=== PATIENT | male | born 1970 | race Caucasian/White ===

== ENCOUNTER 2017-07-11 22:02 | Emergency (ER) | payer OTHER ==
[2017-07-12 02:18] VITALS: BP 137/70
--- NOTE | 2017-07-12 07:59 | RAD ---
INDICATION: Left thigh pain status post slip and fall injury. COMPARISON: None. TECHNIQUE: Noncontrast CT examination of the left distal femur and knee. Axial images were acquired and sagittal and coronal reformats were created and independently analyzed. FINDINGS: The visualized bones are well-corticated and appropriately aligned. There is no evidence of an acute fracture or dislocation. Mild degenerative changes include narrowing of the medial compartment, sclerotic change of the medial tibial plateau and narrowing of the patellofemoral joint. There is superior pole osteophyte formation at the patella. There is trace fluid in the knee joint mostly along the lateral superior post patellar fat pad. Best depicted on the axial plane images (image 68) there is relative hyperdensity along the lateral margin of the quadriceps tendon with a thin rim of hyperdense fluid tracking into the musculature of the vastus lateralis. There is no large drainable muscular hematoma. Within the limitations of a noncontrast CT examination the vasculature and other soft tissues appear normal. IMPRESSION: Hyperdense fluid along the lateral margin of the quadriceps tendon could be seen in the setting of tendinous injury and/or partial tear. There is no drainable hematoma or other fluid collection. As clinically warranted more complete characterization could be made with nonemergent MRI.
--- NOTE | 2017-07-12 12:55 | ED ---
Lower Extremity - HPI Summary HPI Summary: Patient presents with intense upper thigh pain after a twisting motion early this afternoon. HE has not been able to ambulate well since the incident. He feels he flexed the knee when falling and pulled his quadricep. He is unable to fully flex at the knee. Notes to intense pain while bearing weight or trying to flex or extend at the knee. Denies pain at rest. Denies color or temperature changes to the area, but feels some slight swelling. Denies knee pain. Denies hip pain. He is otherwise healthy and takes no medications. Taken aleve with minimal relief. - History of Current Complaint Chief Complaint: EDExtremityLower Stated Complaint: FALL/LT LEG INJURY Time Seen by Provider: 07/11/17 23:02 Hx Obtained From: Patient Mechanism Of Injury: Twisted Onset of Pain: Immediate Onset/Duration: Hours Severity Initially: Moderate Severity Currently: Moderate Pain Intensity: 7 Pain Scale Used: 0-10 Numeric Timing: Constant Location: Is Discrete @ - left quadripcep Associated Signs And Symptoms: Positive: Swelling Aggravating Factor(s): Standing, Ambulation, Movement, Weight Bearing Alleviating Factor(s): Rest Able to Bear Weight: No - Risk Factors Gout Risk Factors: Negative DVT Risk Factors: Estrogen Septic Arthritis Risk Factor: Negative - Allergies/Home Medications Allergies/Adverse Reactions: Allergies Allergy/AdvReac Type Severity Reaction Status Date / Time environmental Allergy Unknown Unknown Uncoded 07/24/13 13:02 Reaction Details PMH/Surg Hx/FS Hx/Imm Hx Previously Healthy: Yes Cardiovascular History: Reports: Hx Hypercholesterolemia Respiratory History: Reports: Hx Sleep Apnea - previous dx, no treatment Sensory History: Reports: Other Sensory Impairments - prn eye drops Opthamlomology History: Reports: Other Sensory Impairments - prn eye drops - Surgical History Surgery Procedure, Year, and Place: LEFT KNEE - Immunization History Hx Pertussis Vaccination: No Immunizations Up to Date: Unable to Obtain/Confirm Infectious Disease History: Denies: Traveled Outside the [place] in Last 30 Days - Social History Occupation: Employed Full-time Lives: With Family Alcohol Use: Rare Hx Substance Use: No Substance Use Type: Reports: None Hx Tobacco Use: No Smoking Status (MU): Never Smoked Tobacco Review of Systems Constitutional: Negative Eyes: Negative Cardiovascular: Negative Respiratory: Negative Genitourinary: Negative Positive: no symptoms reported Positive: Myalgia Skin: Negative Psychological: Normal All Other Systems Reviewed And Are Negative: Yes Physical Exam Triage Information Reviewed: Yes Vital Signs On Initial Exam: Initial Vitals Pulse Resp BP Pulse Ox 77 16 137/70 99 07/12/17 02:15 07/12/17 02:15 07/12/17 02:15 07/12/17 02:15 Vital Signs Reviewed: Yes Appearance: Positive: Well-Appearing, Well-Nourished Skin: Positive: Warm, Skin Color Reflects Adequate Perfusion Head/Face: Positive: Normal Head/Face Inspection Eyes: Positive: EOMI, RAJIV, Conjunctiva Clear Neck: Positive: Supple, No Lymphadenopathy Respiratory/Lung Sounds: Positive: Clear to Auscultation, Breath Sounds Present Cardiovascular: Positive: RRR, Pulses are Symmetrical in both Upper and Lower Extremities Musculoskeletal: Positive: Pain @ - left quad muscle Neurological: Positive: Sensory/Motor Intact, Alert, Oriented to Person Place, Time, Speech Normal Psychiatric: Positive: Normal - [place] Coma Scale Coma Scale Total: 15 Diagnostics - Vital Signs Vital Signs Pulse Resp BP Pulse Ox 07/12/17 02:15 77 16 137/70 99 - Laboratory Lab Statement: Any lab studies that have been ordered have been reviewed, and results considered in the medical decision making process. Lower Extremity Course/Dx - Course Course Of Treatment: He is feeling pressure and pain just 2 cm proximal to the quadriceps tendon insertion, tenderness along the anterior knee is present just above the patella and at the superior border for quadriceps significant for possible partial quadriceps tendon tear. Pain is worse with passive/active knee flexion and passive/active hip extension. CT obtained: IMPRESSION: Hyperdense fluid along the lateral margin of the quadriceps tendon could be. seen in the setting of tendinous injury and/or partial tear. There is no drainable. hematoma or other fluid collection. As clinically warranted more complete characterization. could be made with nonemergent MRI. Patient is given the option of awaiting CT results, as it has been over 1.5 hours. He would like to be discharged home and provider will call tomorrow with results. He is offered pain management and crutches for which he refuses both. Patient is OK with discharge. Upon calling the patient the next morning, he is informed of results and again is encouraged to follow up with ortho for a further evaluation and possible imaging. Left message for patient at 11am on 10/26/17. - Diagnoses Differential Diagnosis/HQI/PQRI: Positive: Sprain, Strain, Tendonitis Provider Diagnoses: Quadriceps muscle strain Discharge - Discharge Plan Condition: Stable Disposition: HOME Patient Education Materials: Muscle Strain (ED) Referrals: Kennedy SEARS,Paulie Mancia [Primary Care Provider] - Vidal Morin MD [Medical Doctor] - Additional Instructions: Aleve or ibuprofen x 5 days minimum Moist heat to the area This is likely a strain of the muscle I will call you tomorrow to give you any results from your CT scan today Please follow up with ortho if symptoms persist
== END 2017-07-12 02:10 | disposition home or self-care (01) ==
LOC: ED 22:02
DX: S76.112A Strain of left quadriceps muscle, fascia and tendon, initial encounter (principal); W19.XXXA Unspecified fall, initial encounter; Y93.9 Activity, unspecified; Y92.9 Unspecified place or not applicable
CPT/HCPCS: 99282

== ENCOUNTER 2018-03-21 21:04 | Emergency (ER) | payer OTHER ==
[2018-03-21 21:45] VITALS: BP 127/84
[2018-03-21] MEDS ORDERED: Cephalexin CAP* 500 MG PO ONE (22:33)
--- NOTE | 2018-03-21 22:50 | UC ---
Skin Complaint HPI - HPI Summary HPI Summary: 47 y/o male presents to the urgent care c/o a red rash over his RT sole s/p bee sting while mowing his back yard yesterday. Pt reports rash is spreading over the medial side of his Rt foot w/ mild swelling. Last year he had a similar episode and the red streak move up to his knee. Pain is mild 2/10 w/ itchiness. Pt denies fever SON, throat tightening, chest pain,abdominal pain, N/V/D. Pt is allergic to Benadryl PO s/p allergic testing. - History of Current Complaint Chief Complaint: UCSkin Time Seen by Provider: 03/21/18 22:25 Stated Complaint: INFLAMED BEE STING SKIN Hx Obtained From: Patient Onset/Duration: Sudden Onset, Lasting Days - 1 day, Still Present, Worse Since - today Skin Exposure Onset/Duration: Days Ago - 1 Timing: Constant Onset Severity: Mild Current Severity: Moderate Pain Intensity: 2 Pain Scale Used: 0-10 Numeric Location: Discrete - Rt sole bee sting and red rash radiating to the medial side of RT foot Character: Swelling, Pruritus, Redness Aggravating Factor(s): Touch Alleviating Factor(s): Nothing Associated Signs & Symptoms: Positive: Rash, Tenderness. Negative: Fever, Chills Related History: Possible Reaction to: Insect - Allergy/Home Medications Allergies/Adverse Reactions: Allergies Allergy/AdvReac Type Severity Reaction Status Date / Time environmental Allergy Unknown Unknown Uncoded 03/21/18 21:46 Reaction Details Home Medications: Home Medications Calcium Carb/Magnesium Hydrox [Rolaids Chewable Tablet] 2 tab PO Q2H PRN [History Confirmed 03/21/18] Review of Systems Constitutional: Negative Skin: Rash - RT plantar redness and swelling s/p bee sting Eyes: Negative ENT: Negative Respiratory: Negative Cardiovascular: Negative Gastrointestinal: Negative Genitourinary: Negative Motor: Negative Neurovascular: Negative Musculoskeletal: Negative Neurological: Negative Psychological: Negative Is Patient Immunocompromised?: No All Other Systems Reviewed And Are Negative: Yes PMH/Surg Hx/FS Hx/Imm Hx Previously Healthy: Yes Endocrine History: Dyslipidemia - diet control Other Respiratory History: seasonal allergies - Surgical History Surgical History: Yes Surgery Procedure, Year, and Place: LEFT KNEE SURGERY 2002 - Family History Known Family History: Positive: Cardiac Disease, Diabetes - Social History Occupation: Employed Full-time Lives: With Family Alcohol Use: Daily Alcohol Amount: 1 beer Substance Use Type: None Smoking Status (MU): Never Smoked Tobacco Physical Exam - Summary Physical Exam Summary: Vital Signs Reviewed: Yes General: well developed, well nourished male sitting in the examining table w/o any apparent distress. Eyes: Positive: Conjunctiva Clear - PERRLA, EOMI ENT: Positive: Normal ENT inspection, Hearing grossly normal, Pharynx normal, TMs normal Neck: Positive: Supple, Nontender, No Lymphadenopathy Respiratory: Positive: Chest nontender, Lungs clear, Normal breath sounds Cardiovascular: Positive: RRR, No Murmur, Pulses Normal Abdomen Description: Positive: Nontender, No Organomegaly, Soft. Negative: CVA Tenderness (R), CVA Tenderness (L) Bowel Sounds: Positive: Present Musculoskeletal: Positive: Strength Intact, ROM Intact, No Edema Neurological Exam: Normal Psychological Exam: Normal Skin: Positive: rashes - RT plantar mid foot w/ erythematous patch w/ indistinct borders, warm to touch, swelling and tender to palpation w/ a central induration from bee sting and streaking to the medial aspect of the RT foot. Triage Information Reviewed: Yes Vital Signs: Initial Vital Signs Temp 98.1 F 03/21/18 21:40 Pulse 81 03/21/18 21:40 Resp 16 03/21/18 21:40 BP 127/84 03/21/18 21:40 Pulse Ox 99 03/21/18 21:40 Course/Dx - Course Course Of Treatment: 47 y/o male presents to the urgent care c/o a red rash over his RT sole s/p bee sting while mowing his back yard yesterday. Pt reports rash is spreading over the medial side of his Rt foot w/ mild swelling. Last year he had a similar episode and the red streak move up to his knee. Pain is mild 2/10 w/ itchiness. Pt denies fever SON, throat tightening, chest pain, abdominal pain, N/V/D. Pt is allergic to Benadryl PO s/p allergic testing. Hx obtained. Pt w/ Cellulitis of RT sole s/p bee sting. Pt Rx Keflex PO, topical Hydrocortisone oint. rash demarcated with a skin marker and Advised if rash doubles in size and if he develops fever to go to the ER for further treatment. First dose Keflex PO given at the clinic tonight. Pt left the clinic ambulating. Pt understood and agreed w/ plan of care. - Differential Diagnoses - Skin Complaint Differential Diagnoses: Abscess, Cellulitis, Lymphadenitis, MRSA, Other - insect bite, bee sting - Diagnoses Provider Diagnoses: 1- Rt foot cellulitis s/p bee sting Discharge - Sign-Out/Discharge Documenting (check all that apply): Discharge/Admit/Transfer - D/C home - Discharge Plan Condition: Stable Disposition: HOME Prescriptions: Cephalexin CAP* [Keflex CAP*] 500 mg PO QID #27 cap Hydrocortisone 1% CREAM* [Hytone Cream 1%*] 1 applic TOPICAL BID #1 tube Patient Education Materials: Cellulitis (ED), Insect Bite or Sting (ED) Referrals: Kennedy SEARS,Paulie Mancia [Primary Care Provider] - 3 Days Additional Instructions: 1-Please take full course of Antibiotic. 2- If redness and swelling doubles in size after 48 hrs of taking antibiotic and fever develops please go to the ER immediately. 3-Avoid standing for long periods of time or flexing your foot, keep it elevated and keep wound clean and dry. 4-Please F/u with your PCP in 3 days if not improvement of symptoms for further evaluation and treatment. - Billing Disposition and Condition Condition: STABLE Disposition: Home
== END 2018-03-21 23:00 | disposition home or self-care (01) ==
LOC: UCEAST 21:04
DX: L03.115 Cellulitis of right lower limb (principal); E78.5 Hyperlipidemia, unspecified; Z91.09 Other allergy status, other than to drugs and biological substances; W57.XXXA Bitten or stung by nonvenomous insect and other nonvenomous arthropods, initial encounter; Y93.89 Activity, other specified; Y92.89 Other specified places as the place of occurrence of the external cause
CPT/HCPCS: 99212; A9270-GY; G0463